=== PATIENT | male | born 1995 | race Caucasian/White ===

== ENCOUNTER → 2025-08-24 | Outpatient (CLI) | payer SELFPAY ==
--- NOTE | 2025-08-24 16:28 | RAD_ITS ---
PROCEDURE: L/S SPINE MIN 4 VIEWS 08/24/2025 REASON FOR EXAM: LOW BACK PAIN, UNSPECIFIED TECHNIQUE: Procedure Code: RADSPLS Modality: DX Procedure: L/S SPINE MIN 4 VIEWS COMPARISON: None FINDINGS: Curvature: Normal curvature Bones and disc space: Is preserved vertebral body heights. Preserved disc space. Other: No evidence of spondylolysis or spondylolisthesis. RAD/L/S Spine Min 4 Views IMPRESSION: Normal lumbar radiographs. Reading Location: [facility]
== END | disposition home or self-care (01) ==
PROVIDERS: PCP Pediatrics; Referring Provider Chiropractor Orthopedic; Visit Provider Chiropractor Orthopedic
DX: M99.03 Segmental and somatic dysfunction of lumbar region (principal); M54.42 Lumbago with sciatica, left side
CPT/HCPCS: 72110